=== PATIENT | female | born 1930 | race Caucasian/White ===

== ENCOUNTER 2016-12-28 12:57 | Emergency (ER) | payer OTHER ==
[2016-12-28 13:08] VITALS: BP 142/74; PULSE 102; TEMP 98.1; BMI 19.3
--- NOTE | 2016-12-28 15:16 | PDOC ---
History of Present Illness - General Chief Complaint: Injury Stated Complaint: FALL/ HEAD, RT WRIST PAIN Time Seen by Provider: 12/28/16 14:39 History Source: Patient Exam Limitations: No Limitations - History of Present Illness Initial Comments: CHIEF COMPLAINT: 86 y/o afebrile female with right wrist pain s/p slip and fall. HISTORY OF PRESENT ILLNESS: The patient slipped outside today, falling on her outstretched right hand. She states she fells backwards as well and the back of her head hit the ground. She is c/o right wrist pain with deformity. She denies LOC, [place], neck pain, changes in vision/hearing, n/v/d, dizziness, CP, SOB , numbness/tingling in affected extremity. She is not on a blood thinner. Vital signs on arrival are notable for pulse of 102. REVIEW OF SYSTEMS: GENERAL/CONSTITUTIONAL: No fever/chills. No weakness. No weight change. HEAD, EYES, EARS, NOSE AND THROAT: No change in vision. No ear pain or discharge. No sore throat. CARDIOVASCULAR: No chest pain or shortness of breath. RESPIRATORY: No cough, wheezing, or hemoptysis. GASTROINTESTINAL: No abd pain, nausea, vomiting, diarrhea. GENITOURINARY: No dysuria, frequency, or change in urination. MUSCULOSKELETAL: +right wrist pain and swelling. No neck or back pain. SKIN: No rash or easy bruising. NEUROLOGIC: No headache, vertigo, loss of consciousness, or loss of sensation. PHYSICAL EXAM: GENERAL: The patient is awake, alert, and fully oriented, in no acute distress. She is well appearing and ambulatory. HEAD: Normal with no signs of trauma. No hematomas. No abrasions. ENT: Pupils equal, round and reactive to light, extraocular movements intact, sclera anicteric, conjunctiva clear. Neck supple. LUNGS: Clear to auscultation bilaterally. Normal excursion. No respiratory distress or use of accessory muscles. CV: RRR, S1/S2, no MRG. Cap refill < 2 sec. ABDOMEN: Soft, non-distended, non-tender even to deep palpation, no hepatomegaly or splenomegaly, no masses. EXTREMITIES: Right distal forearm with significant edema, eccchymosis and obvious deformity. TTP of entire right wrist. NEUROLOGICAL: Normal speech, normal gait. CN II-XII grossly intact. PSYCH: Normal mood, normal affect. SKIN: Warm, dry, normal turgor, no rashes or lesions noted. Past History - Past Medical History Allergies/Adverse Reactions: Allergies Allergy/AdvReac Type Severity Reaction Status Date / Time No Known Drug Allergies Allergy Verified 12/28/16 15:04 SEAONAL AdvReac Uncoded 12/28/16 15:04 Home Medications: Ambulatory Orders Lisinopril [Prinivil] 10 mg PO DAILY 12/27/12 Metoprolol Succinate [Toprol XL -] 25 mg PO DAILY 12/27/12 COPD: Yes HTN: Yes Hypercholesterolemia: Yes - Surgical History Orthopedic Surgery: Yes (CARPAL TUNNEL) - Psycho/Social/Smoking Cessation Hx Suicidal Ideation: No Smoking History: Never smoked Have you smoked in the past 12 months: No Hx Alcohol Use: No Drug/Substance Use Hx: No Substance Use Type: None *Physical Exam - Vital Signs Last Vital Signs Temp Pulse Resp BP Pulse Ox 98.1 F 102 H 18 142/74 98 12/28/16 13:07 12/28/16 13:07 12/28/16 13:07 12/28/16 13:07 12/28/16 13:07 Procedures - Splinting Splint Location: Right: Forearm Pre-Proc Neuro Vasc Exam: normal Hand-Made Type: orthoglass Splint Type: Yes: Volar Post-Proc Neuro Vasc Exam: normal Twin Bandage: yes, 3" (2) Sling: Yes ED Treatment Course - RADIOLOGY Radiology Studies Ordered: Category Date Time Status WRIST W/HAND-RIGHT* [RAD] Stat Radiology 12/28/16 14:41 Taken Medical Decision Making - Medical Decision Making A/P: 86 y/o female with most likely right distal forearm fracture. Plan is as follows: 1. xray right hand/wrist 2. PO motrin Xray right hand/wrist IMPRESSION: Dorsally displaced impacted fracture of distal radial metaphysis with dorsal displacement. Displaced fracture of the ulnar styloid. Spoke with Dr. Jones. He looked at the xray and suggests volar splint with sling and prompt ortho f/u. Pt tolerated splinting well. Provided a sling. Will d/c to home with instructions to take motrin for pain and Percocet for break through pain. Informed her and family that percocet may cause drowsiness and/or dizziness. Suggested they call their orthopedic doctor, Dr. Burnette, first thing tomorrow morning to schedule follow up appointment. The patient verbalizes understanding of all instructions, has no further questions and is awaiting discharge. *DC/Admit/Observation/Transfer Diagnosis at time of Disposition: Radius and ulna distal fracture Qualifiers: Encounter type: initial encounter Fracture type: closed Laterality: right Qualified Code(s): S52.501A - Unspecified fracture of the lower end of right radius, initial encounter for closed fracture; S52.601A - Unspecified fracture of lower end of right ulna, initial encounter for closed fracture - Discharge Dispostion Disposition: HOME Condition at time of disposition: Improved - Referrals Referrals: Betzy Graves MD [Primary Care Provider] - Kenyon Burnette MD [Staff Physician] - Call tomorrow - Patient Instructions Printed Discharge Instructions: DI for Wrist Fracture, How to Use a Sling Additional Instructions: Discharge Instructions: -Take Motrin for pain every 6 hours with food -Take Percocet for break through pain; may cause drowsiness/dizziness -Call Dr. Burnette first thing tomorrow and set up follow up appointment JENNIFER
[2016-12-28] MEDS ORDERED: IBUPROFEN 600 MG TABLET (FP) PO ONE ×2 (15:17→15:25)
== END 2016-12-28 17:50 | disposition home or self-care (01) ==
LOC: JERFT 12:57
PROC: 2W3CX1Z Immobilization of Right Lower Arm using Splint (ICD-10-PCS; principal; 2016-12-28)
DX: S52.591A Other fractures of lower end of right radius, initial encounter for closed fracture (principal); S52.611A Displaced fracture of right ulna styloid process, initial encounter for closed fracture; W00.2XXA Other fall from one level to another due to ice and snow, initial encounter; Z91.81 History of falling; Y93.01 Activity, walking, marching and hiking; Y92.480 Sidewalk as the place of occurrence of the external cause; I10 Essential (primary) hypertension; E78.00 Pure hypercholesterolemia, unspecified; J45.909 Unspecified asthma, uncomplicated
CPT/HCPCS: 29125; 73110-TC-RT; 73130-TC-RT; 99281-25